=== PATIENT | female | born 2000 | race Caucasian/White ===

== ENCOUNTER 2021-11-30 16:56 | Emergency (ER) | payer OTHER ==
[2021-11-30] MEDS ORDERED: Ondansetron ODT 4 MG TAB ONE (17:37)
[2021-11-30] MEDS ORDERED: Acetaminophen 500 MG TAB ONE (17:38)
[2021-11-30] MEDS ORDERED: Promethazine HCl 25 MG/ML VIAL ONE (18:50)
== END 2021-11-30 20:41 | disposition home or self-care (01) ==
LOC: CSHERS 16:56
DX: O21.9 Vomiting of pregnancy, unspecified (principal); O99.891 Other specified diseases and conditions complicating pregnancy; R50.9 Fever, unspecified; R00.0 Tachycardia, unspecified; R53.81 Other malaise; Z20.822 Contact with and (suspected) exposure to COVID-19; Z3A.10 10 weeks gestation of pregnancy
CPT/HCPCS: 96361; 96365; J2550; Q0162; U0003; U0005

== ENCOUNTER 2022-06-06 20:05 | Observation (INO) | payer OTHER ==
[2022-06-06 20:29] VITALS: BMI 28.9
[2022-06-06] MEDS ORDERED: Acetaminophen 325 MG TAB PO SCH (21:00)
[2022-06-06] MEDS ORDERED: Morphine 4 MG/ML VIAL IM SCH (23:30)
[2022-06-06 23:37] LABS: Bilirubin Neg (Negative); Blood, Urine 250 (Negative); Clarity Cloudy (Clear); Glucose, Urine (Dipstick) Normal (Negative); Ketone, Urine 150 mg/dL (Negative); Leukocyte 500 (Negative); Nitrite Negative (Negative); Protein, Urine (Dipstick) 30 mg/dl (Neg-Trace); Specific Gravity, Urine 1.015 (1.005-1.030)
[2022-06-06 23:47] LABS: Bacteria/HPF 1+ HPF (None Seen); CAUTI Indications for Culture Pregnancy; RBC/HPF 21-50 HPF (0-3)
[2022-06-06 23:48] LABS: Urine Culture Reflex Yes Yes
[2022-06-07] MEDS ORDERED: cefTRIAXone\\ROCEPHIN 1 GM in Sodium Chloride 0.9% 100 ML IVPB SCH (01:00)
[2022-06-07] MEDS ORDERED: Dextrose 5%-Lactated Ringers 1,000 ML IV SCH (01:00)
[2022-06-07] MEDS ORDERED: Ondansetron PF 4 MG/2 ML Vial IVP PRN (03:42)
[2022-06-07] MEDS ORDERED: Promethazine HCl 25 MG/ML VIAL IM PRN (03:42)
[2022-06-07] MEDS ORDERED: hydrALAZINE 20 MG/ML VIAL SLOW IVP PRN (03:42)
[2022-06-07] MEDS ORDERED: Lactated Ringer's 1,000 ML IV SCH (04:00)
[2022-06-07] MEDS: Acetaminophen 500 MG TAB PO PRN ×2 (10:40→18:38)
[2022-06-07] MEDS: Morphine 4 MG/ML VIAL SLOW IVP PRN ×2 (14:50→21:01)
[2022-06-08] MEDS: Morphine 4 MG/ML VIAL SLOW IVP PRN (04:00)
== END 2022-06-08 12:09 | disposition home or self-care (01) ==
LOC: CSHLD/OP 20:05 → CSHLD 06-07 03:44
PROVIDERS: ADMIT Obstetrics & Gynecology; ATTEND Obstetrics & Gynecology
DX: O99.613 Diseases of the digestive system complicating pregnancy, third trimester (principal); K42.0 Umbilical hernia with obstruction, without gangrene; O23.43 Unspecified infection of urinary tract in pregnancy, third trimester; N39.0 Urinary tract infection, site not specified; O99.283 Endocrine, nutritional and metabolic diseases complicating pregnancy, third trimester; E86.0 Dehydration; Z3A.36 36 weeks gestation of pregnancy
CPT/HCPCS: 76705; 81001; 82570; 84156; 87086; 99285; J0696; J2270; J2405; J3490; J7120

== ENCOUNTER 2022-06-12 20:13 | Day surgery (SDC) | payer OTHER ==
[2022-06-12] MEDS ORDERED: hydrALAZINE 20 MG/ML VIAL SLOW IVP PRN (21:31)
== END 2022-06-12 23:32 | disposition home or self-care (01) ==
LOC: CSHLD/OP 20:13
PROVIDERS: ATTEND Obstetrics & Gynecology
DX: O47.1 False labor at or after 37 completed weeks of gestation (principal); O63.9 Long labor, unspecified; O13.3 Gestational [pregnancy-induced] hypertension without significant proteinuria, third trimester; O99.343 Other mental disorders complicating pregnancy, third trimester; F41.9 Anxiety disorder, unspecified; F32.A Depression, unspecified; O99.613 Diseases of the digestive system complicating pregnancy, third trimester; K42.0 Umbilical hernia with obstruction, without gangrene; R12 Heartburn; Z79.899 Other long term (current) drug therapy; Z88.8 Allergy status to other drugs, medicaments and biological substances; Z3A.37 37 weeks gestation of pregnancy
CPT/HCPCS: 99283

== ENCOUNTER 2022-06-14 18:43 | Inpatient (IN) | payer OTHER ==
[2022-06-14] MEDS ORDERED: Misoprostol 200 MCG TAB PR PRN (19:46)
[2022-06-14] MEDS ORDERED: Lidocaine 1% (PF) 30 ML VIAL SC PRN (19:46)
[2022-06-14] MEDS ORDERED: Methylergonovine 0.2 MG/ML VIAL IM PRN (19:46)
[2022-06-14] MEDS ORDERED: Acetaminophen 500 MG TAB PO PRN (19:46)
[2022-06-14] MEDS ORDERED: hydrALAZINE 20 MG/ML VIAL SLOW IVP PRN (19:46)
[2022-06-14] MEDS ORDERED: Ondansetron PF 4 MG/2 ML Vial IVP PRN (19:46)
[2022-06-14] MEDS ORDERED: Promethazine HCl 25 MG/ML VIAL IM PRN (19:46)
[2022-06-14] MEDS ORDERED: Ibuprofen 800 MG TAB PO PRN (19:46)
[2022-06-14] MEDS ORDERED: Butorphanol Tartrate 1 MG/ML VIAL SLOW IVP PRN (19:46)
[2022-06-14] MEDS ORDERED: HYDROcodone/Acetaminophen 5/325 mg Tablet PO PRN ×2 (19:46)
[2022-06-14] MEDS ORDERED: Zolpidem Tartrate 5 MG TAB PO PRN (19:46)
[2022-06-14] MEDS ORDERED: Lactated Ringer's 1,000 ML IV SCH ×2 (20:00)
[2022-06-14] MEDS ORDERED: NS w/ Oxytocin 30 units 500 ML IV SCH ×2 (20:00)
[2022-06-14 20:59] VITALS: BMI 29.2
[2022-06-14 21:10] LABS: Mean Corpuscular HGB CONC 32.7 g/dL (32.0-36.0); Mean Corpuscular Hemoglobin 25.4 pg (27.0-33.0); Mean Corpuscular Volume 77.9 fl (81.6-98.3); Mean Platelet Volume 10.6 fl (7.4-10.4); Platelet Count 226 10x3/uL (150-450); Red Blood Cell (RBC) Count 3.93 10x6/uL (3.90-5.03); White Blood Cell (WBC) Count 15.6 10x3/uL (3.5-10.5)
[2022-06-14 22:37] LABS: HBSAg Index 0.14 S/CO (0-0.99); Hep B Surf Ag Non-Reactive S/CO (NonReactive)
[2022-06-14 22:38] LABS: Syphilis Antibody Nonreactive (Nonreactive); Syphilis Antibody Index 0.02 S/CO (<1.00 Non-Reactive)
[2022-06-15] MEDS ORDERED: Fentanyl 2 mcg/Bup 0.1% Cadd 100 ML ONE (03:19)
[2022-06-15] MEDS ORDERED: Naloxone HCl 0.4 mg/ml Vial IVP PRN ×2 (03:37)
[2022-06-15] MEDS ORDERED: Moisturizing Cream (Eucerin) 113 GM JAR TOP PRN (03:37)
[2022-06-15] MEDS ORDERED: Lactated Ringer's 500 ML IV PRN (03:37)
[2022-06-15] MEDS ORDERED: Acetaminophen 325 MG TAB PO PRN (03:37)
[2022-06-15] MEDS ORDERED: ePHEDrine Sulfate 50 MG/10 ML VIAL SLOW IVP PRN (03:37)
[2022-06-15] MEDS ORDERED: Promethazine HCl 25 MG/ML VIAL IM PRN (03:37)
[2022-06-15] MEDS ORDERED: Ondansetron PF 4 MG/2 ML Vial IVP PRN ×2 (03:37→13:37)
[2022-06-15] MEDS ORDERED: diphenhydrAMINE 50 MG/ML VIAL IVP PRN (03:37)
[2022-06-15] MEDS ORDERED: Fentanyl 2 mcg/Bupivacaine 0.1% Cassette 100 ML EPIDURAL SCH (03:45)
[2022-06-15] MEDS ORDERED: Communication Order-Pharmacy FS SCH (03:45)
[2022-06-15] MEDS ORDERED: Azithromycin 500 MG VIAL ONE (12:55)
[2022-06-15] MEDS ORDERED: CEFAZOLIN 2 GM VIAL ONE (12:55)
[2022-06-15] MEDS ORDERED: diphenhydrAMINE 25 MG CAP PO PRN (13:37)
[2022-06-15] MEDS ORDERED: Boostrix 0.5 ML (Tdap) VIAL (>/=7 yrs of age) IM ONE (13:37)
[2022-06-15] MEDS ORDERED: Bisacodyl 10 MG SUPP PR PRN (13:37)
[2022-06-15] MEDS ORDERED: Lanolin Ointment 7 GM TUBE TOP PRN (13:37)
[2022-06-15] MEDS ORDERED: HYDROcodone/Acetaminophen 5/325 mg Tablet PO PRN (13:37)
[2022-06-15] MEDS ORDERED: Benzocaine-Menthol 82.5 ML CAN TOP PRN (13:37)
[2022-06-15] MEDS ORDERED: Milk Of Magnesia 30 ML UDCUP PO PRN (13:37)
[2022-06-15] MEDS ORDERED: Misoprostol 200 MCG TAB VAG PRN (13:37)
[2022-06-15] MEDS ORDERED: Zolpidem Tartrate 5 MG TAB PO PRN (13:37)
[2022-06-15] MEDS ORDERED: hydrALAZINE 20 MG/ML VIAL SLOW IVP PRN (13:37)
[2022-06-15] MEDS ORDERED: Preparation H Ointment 28 GM TUBE PR PRN (13:37)
[2022-06-15] MEDS ORDERED: NS w/ Oxytocin 30 units 500 ML IV SCH (13:45)
[2022-06-15] MEDS: Ferrous Sulfate 325 MG TAB PO SCH (17:50)
[2022-06-15] MEDS: Ibuprofen 800 MG TAB PO SCH ×2 (20:24→23:06)
[2022-06-15] MEDS: Docusate 100 MG CAP PO SCH (20:24)
[2022-06-16] MEDS: HYDROcodone/Acetaminophen 5/325 mg Tablet PO PRN ×3 (00:22→19:50)
[2022-06-16] MEDS: Ibuprofen 800 MG TAB PO SCH ×3 (04:16→21:05)
[2022-06-16] MEDS: Ferrous Sulfate 325 MG TAB PO SCH ×2 (08:43→17:38)
[2022-06-16] MEDS: Prenatal Vitamin 1 TAB PO SCH (08:48)
[2022-06-16] MEDS: Docusate 100 MG CAP PO SCH ×2 (08:48→21:05)
[2022-06-17] MEDS: Ibuprofen 800 MG TAB PO SCH ×2 (05:41→14:39)
[2022-06-17] MEDS: Ferrous Sulfate 325 MG TAB PO SCH (08:55)
[2022-06-17 10:12] VITALS: BP 125/67; TEMP 98.2
[2022-06-17] MEDS: Docusate 100 MG CAP PO SCH (14:38)
[2022-06-17] MEDS: Prenatal Vitamin 1 TAB PO SCH (14:38)
== END 2022-06-17 16:00 | disposition home or self-care (01) | DRG 807 ==
LOC: CSHLD/OP 18:43 → CSHLD 19:46 → UNDOADMIN 06-15 01:37 → CSHLD 06-15 01:37 → CSHPP 06-15 15:55
PROVIDERS: ADMIT Obstetrics & Gynecology; ATTEND Obstetrics & Gynecology
PROC: 10E0XZZ Delivery of Products of Conception, External Approach (ICD-10-PCS; principal; 2022-06-15)
PROC: 10907ZC Drainage of Amniotic Fluid, Therapeutic from Products of Conception, Via Natural or Artificial Opening (ICD-10-PCS; 2022-06-15)
PROC: 0HQ9XZZ Repair Perineum Skin, External Approach (ICD-10-PCS; 2022-06-15)
DX: O99.62 Diseases of the digestive system complicating childbirth (principal); Z37.0 Single live birth; Z3A.37 37 weeks gestation of pregnancy; Z20.822 Contact with and (suspected) exposure to COVID-19; Z88.1 Allergy status to other antibiotic agents; Z86.16 Personal history of COVID-19; D64.9 Anemia, unspecified; O99.02 Anemia complicating childbirth; K21.9 Gastro-esophageal reflux disease without esophagitis; F41.9 Anxiety disorder, unspecified; F32.A Depression, unspecified; O99.344 Other mental disorders complicating childbirth; Z79.82 Long term (current) use of aspirin; Z79.899 Other long term (current) drug therapy; K42.9 Umbilical hernia without obstruction or gangrene; O70.0 First degree perineal laceration during delivery
CPT/HCPCS: 36415; 51702; 85027; 86780; 86850; 86900; 86901; 87340; 99285; J0595; U0003; U0005

== ENCOUNTER 2024-03-06 09:39 | Day surgery (SDC) | payer MEDICAID, OTHER ==
[2024-03-06 11:17] LABS: Bilirubin Neg (Negative); Blood, Urine Negative (Negative); Clarity Clear (Clear); Glucose, Urine (Dipstick) Normal (Negative); Ketone, Urine Negative (Negative); Leukocyte 100 (Negative); Nitrite Negative (Negative); Protein, Urine (Dipstick) 15 mg/dl (Neg-Trace); Specific Gravity, Urine 1.015 (1.005-1.030)
[2024-03-06] MEDS ORDERED: Acetaminophen 325 MG TAB PO PRN (11:17)
[2024-03-06 11:38] LABS: Bacteria/HPF 1+ HPF (None Seen); CAUTI Indications for Culture Pregnancy; Mucous/LPF 2+ LPF (<2+); RBC/HPF None Seen HPF (0-3)
[2024-03-06 11:40] LABS: Urine Culture Reflex No No; Urine Culture Reflex Yes Yes
== END 2024-03-06 13:40 | disposition home or self-care (01) ==
LOC: CSHLD/OP 09:39
PROVIDERS: ATTEND Family Medicine
DX: O47.03 False labor before 37 completed weeks of gestation, third trimester (principal); O26.853 Spotting complicating pregnancy, third trimester; O99.013 Anemia complicating pregnancy, third trimester; O23.593 Infection of other part of genital tract in pregnancy, third trimester; B96.89 Other specified bacterial agents as the cause of diseases classified elsewhere; O09.213 Supervision of pregnancy with history of pre-term labor, third trimester; O21.2 Late vomiting of pregnancy; O09.93 Supervision of high risk pregnancy, unspecified, third trimester; Z79.82 Long term (current) use of aspirin; Z87.59 Personal history of other complications of pregnancy, childbirth and the puerperium; Z79.899 Other long term (current) drug therapy; Z88.1 Allergy status to other antibiotic agents; Z3A.35 35 weeks gestation of pregnancy
CPT/HCPCS: 81001; 87086; 87480; 87510; 87660; 99285

== ENCOUNTER 2024-03-20 18:06 | Day surgery (SDC) | payer MEDICAID ==
[2024-03-20 18:26] VITALS: BMI 31.5
[2024-03-20] MEDS ORDERED: hydrALAZINE 20 MG/ML VIAL SLOW IVP PRN (19:39)
[2024-03-20] MEDS ORDERED: Acetaminophen 500 MG TAB PO SCH (20:30)
== END 2024-03-20 23:10 | disposition home or self-care (01) ==
LOC: CSHLD/OP 18:06
PROVIDERS: ATTEND Family Medicine
DX: O47.1 False labor at or after 37 completed weeks of gestation (principal); O99.013 Anemia complicating pregnancy, third trimester; D50.9 Iron deficiency anemia, unspecified; O09.213 Supervision of pregnancy with history of pre-term labor, third trimester; Z79.82 Long term (current) use of aspirin; Z79.899 Other long term (current) drug therapy; Z88.1 Allergy status to other antibiotic agents; Z3A.37 37 weeks gestation of pregnancy
CPT/HCPCS: 99283

== ENCOUNTER 2024-03-26 09:15 | Inpatient (IN) | payer MEDICAID ==
[~2024-03-26 09:15] MED LIST: Bupivacaine/Epinephrine 0.25% 30 ML VIAL ONE
[2024-03-26 10:12] VITALS: BMI 31.1
[2024-03-26] MEDS ORDERED: hydrALAZINE 20 MG/ML VIAL SLOW IVP PRN (11:29)
[2024-03-26] MEDS ORDERED: Misoprostol 200 MCG TAB PR PRN (13:43)
[2024-03-26] MEDS ORDERED: Carboprost 250 MCG/ML AMP IM PRN (13:43)
[2024-03-26] MEDS ORDERED: Tranexamic Acid 1,000 MG/10 ML VIAL IVP PRN (13:43)
[2024-03-26] MEDS ORDERED: Acetaminophen 500 MG TAB PO PRN (13:43)
[2024-03-26] MEDS ORDERED: Methylergonovine 0.2 MG/ML VIAL IM PRN ×2 (13:43→20:37)
[2024-03-26] MEDS ORDERED: Promethazine HCl 25 MG/ML VIAL IM PRN ×2 (13:43→16:38)
[2024-03-26 15:28] LABS: Hematocrit 35.4 % (34.9-44.5); Hemoglobin 11.6 g/dL (12.0-15.5); Mean Corpuscular HGB CONC 32.8 g/dL (32.0-36.0); Mean Corpuscular Hemoglobin 26.9 pg (27.0-33.0); Mean Corpuscular Volume 82.1 fL (81.6-98.3); Platelet Count 169 10x3/uL (150-450); RBC Distribution Width 20.4 % (11.5-14.5); Red Blood Cell (RBC) Count 4.31 10x6/uL (3.90-5.03); White Blood Cell (WBC) Count 9.7 10x3/uL (3.5-10.5)
[2024-03-26 16:08] LABS: Syphilis Antibody Nonreactive (Nonreactive); Syphilis Antibody Index 0.04 S/CO (<1.00 Non-Reactive)
[2024-03-26 16:10] LABS: HBsAg Index 0.34 S/CO (0-0.99); Hep B Surf Ag - L&D Non-Reactive S/CO (NonReactive)
[2024-03-26] MEDS: fentaNYL/Ropivacaine Epidural 100 ML ONE (16:36)
[2024-03-26] MEDS ORDERED: Ondansetron PF 4 MG/2 ML Vial IVP PRN (16:38)
[2024-03-26] MEDS ORDERED: ePHEDrine Sulfate 50 MG/10 ML VIAL SLOW IVP PRN (16:38)
[2024-03-26] MEDS ORDERED: Naloxone HCl 0.4 mg/ml Vial IVP PRN ×2 (16:38)
[2024-03-26] MEDS ORDERED: diphenhydrAMINE 50 MG/ML VIAL IVP PRN (16:38)
[2024-03-26] MEDS ORDERED: Lactated Ringer's 500 ML IV PRN (16:38)
[2024-03-26] MEDS ORDERED: Moisturizing Cream (Eucerin) 113 GM JAR TOP PRN (16:38)
[2024-03-26] MEDS ORDERED: fentaNYL 2 mcg/Ropivacaine 0.2% Epidural 100 ML CADD EPIDURAL SCH (16:45)
[2024-03-26] MEDS ORDERED: Communication Order-Pharmacy FS SCH (16:45)
[2024-03-26] MEDS: Acetaminophen 325 MG TAB PO PRN (19:02)
[2024-03-26] MEDS: Oxytocin 30 units/NS 500 ML 500 ML IV SCH (19:15)
[2024-03-26] MEDS: Ondansetron PF 4 MG/2 ML Vial IVP PRN (19:54)
[2024-03-26] MEDS ORDERED: Benzocaine-Menthol 82.5 ML CAN TOP PRN (20:37)
[2024-03-26] MEDS ORDERED: Lanolin Ointment 7 GM TUBE TOP PRN (20:37)
[2024-03-26] MEDS ORDERED: Preparation H Ointment 28 GM TUBE PR PRN (20:37)
[2024-03-26] MEDS ORDERED: Bisacodyl 10 MG SUPP PR PRN (20:37)
[2024-03-26] MEDS ORDERED: Milk Of Magnesia 30 ML UDCUP PO PRN (20:37)
[2024-03-26] MEDS: Ibuprofen 800 MG TAB PO SCH (21:47)
[2024-03-27] MEDS: Docusate 100 MG CAP PO SCH (00:32)
[2024-03-27] MEDS: Ferrous Sulfate 325 MG TAB PO SCH (07:26)
[2024-03-27] MEDS: Boostrix 0.5 ML (Tdap) VIAL (>/=7 yrs of age) IM ONE (07:26)
[2024-03-27] MEDS: Prenatal Vitamin 1 TAB PO SCH (08:11)
[2024-03-27] MEDS: Measles/Mumps/Rubella 10 MCG/0.5 ML VIAL SC ONE ×2 (18:08→18:35)
[2024-03-28 07:40] VITALS: BP 134/83; TEMP 98.1
== END 2024-03-28 12:30 | disposition home or self-care (01) | DRG 807 ==
LOC: CSHLD/OP 09:15 → CSHLD 14:23 → INTOOBSV 14:23 → OBSVTOIN 14:24 → EEVIPCON 14:24 → CSHPP 03-27
PROVIDERS: ADMIT Family Medicine; ATTEND Family Medicine
PROC: 10E0XZZ Delivery of Products of Conception, External Approach (ICD-10-PCS; principal; 2024-03-26)
PROC: 0UQMXZZ Repair Vulva, External Approach (ICD-10-PCS; 2024-03-26)
PROC: 10907ZC Drainage of Amniotic Fluid, Therapeutic from Products of Conception, Via Natural or Artificial Opening (ICD-10-PCS; 2024-03-26)
PROC: 10H07YZ Insertion of Other Device into Products of Conception, Via Natural or Artificial Opening (ICD-10-PCS; 2024-03-26)
DX: O99.02 Anemia complicating childbirth (principal); Z37.0 Single live birth; D50.9 Iron deficiency anemia, unspecified; O70.0 First degree perineal laceration during delivery; Z3A.38 38 weeks gestation of pregnancy; Z79.82 Long term (current) use of aspirin; Z88.1 Allergy status to other antibiotic agents; O69.81X0 Labor and delivery complicated by cord around neck, without compression, not applicable or unspecified
CPT/HCPCS: 36415; 51702; 85027; 86780; 86850; 86900; 86901; 87340; 90707; 99285; J2405; J2590